=== PATIENT | female | born 1970 | race Asian ===

== ENCOUNTER 2016-09-20 01:16 | Inpatient (IN) | payer BC ==
[~2016-09-20] VITALS: Ht 152.4 cm; Wt 53.0 kg
[2016-09-20 01:20] VITALS: Ht 152.4 cm; Wt 53.0 kg
[2016-09-20] MEDS ORDERED: morphine 4 MG/ML VIAL IV STA (02:52)
[2016-09-20] MEDS ORDERED: ONDANSETRON 4 MG INJ IV STA (02:52)
[2016-09-20] MEDS ORDERED: SOD CHLORIDE 0.9% 1,000 ML IV STA (02:52)
[2016-09-20 03:46] LABS: ADD SCAN DIFF NO
[2016-09-20 03:56] LABS: BASOPHILS % 0.3 % (0.0-2.0); EOSINOPHILS % 0.4 % (0.0-7.0); HEMATOCRIT 38.7 % (37.0-47.0); HEMOGLOBIN 12.5 g/dl (12.0-16.0); LYMPHOCYTES # 1.2 10^3/ul (0.8-2.9); LYMPHOCYTES % 13.6 % (15.0-51.0); MEAN CORPUSCULAR HEMOGLOBIN 27.5 pg (29.0-33.0); MEAN CORPUSCULAR HGB CONC 32.3 g/dl (32.0-37.0); MEAN CORPUSCULAR VOLUME 85.2 fl (82.0-101.0); MEAN PLATELET VOLUME 10.3 fl (7.4-10.4); MONOCYTE # 0.4 10^3/ul (0.3-0.9); MONOCYTES % 4.2 % (0.0-11.0); NEUTROPHIL # 7.4 10^3/ul (1.6-7.5); NEUTROPHILS % 81.2 % (39.0-77.0); PLATELET COUNT 328 10^3/UL (140-415); RED BLOOD COUNT 4.54 10^6/ul (4.20-5.40); RED CELL DISTRIBUTION WIDTH 12.9 % (11.5-14.5); WHITE BLOOD COUNT 9.1 10^3/ul (4.8-10.8)
[2016-09-20 03:59] LABS: ALBUMIN 4.7 g/dl (3.3-4.9)
[2016-09-20 04:00] LABS: POTASSIUM 4.2 mmol/L (3.5-5.1)
[2016-09-20 04:02] LABS: ALBUMIN/GLOBULIN RATIO 1.09; BILIRUBIN,INDIRECT 1.5 mg/dl (0-1.1); BILIRUBIN,TOTAL 1.5 mg/dl (0.2-1.3); CREATININE 0.75 mg/dl (0.44-1.00)
[2016-09-20 04:03] LABS: CALCIUM 11.3 mg/dl (8.4-10.2)
[2016-09-20 04:15] LABS: ADD UMIC NO; URINE BILIRUBIN (Dip) NEGATIVE (NEGATIVE); URINE BLOOD (Dip) NEGATIVE (NEGATIVE); URINE COLOR LT. YELLOW (YELLOW); URINE GLUCOSE (Dip) NEGATIVE (NEGATIVE); URINE KETONES (Dip) NEGATIVE (NEGATIVE); URINE LEUKOCYTE ESTERASE (Dip) NEGATIVE (NEGATIVE); URINE NITRITE (Dip) NEGATIVE (NEGATIVE); URINE TOTAL PROTEIN (Dip) NEGATIVE (NEGATIVE); URINE UROBILINOGEN (Dip) 0.2 E.U./dL (0.1-1.0)
--- NOTE | 2016-09-20 05:31 | ERA ---
ER Documentation Chief Complaint Date/Time DATE: 09/20/16 TIME: 05:29 Chief Complaint upper abd pain since yesterday. hx of gallstone/pancreatitits HPI This a 45-year-old upper abdominal pain since yesterday. Patient has history gallstone pancreatitis. Pain is mild to moderate in intensity. No fevers no chills. No other current complaints. Mild nausea 3-4 episodes of vomiting. ROS All systems reviewed and are negative except as per history of present illness. Allergies Allergies: Coded Allergies: No Known Drug Allergies (Verified Allergy, Unknown, 09/20/16) PMhx/Soc Hx Miscellaneous Medical Probl: Yes (gallstones and pancreatitis ) Hx Alcohol Use: No Hx Substance Use: No Hx Tobacco Use: No Smoking Status: Never smoker Physical Exam Vitals Vital Signs Date Time Temp Pulse Resp B/P Pulse Ox O2 Delivery O2 Flow Rate FiO2 09/20/16 03:55 68 13 122/87 98 09/20/16 01:20 97.6 85 20 122/71 100 Physical Exam Const: [] Head: Atraumatic Eyes: Normal Conjunctiva ENT: Normal External Ears, Nose and Mouth. Neck: Full range of motion..~ No meningismus. Resp: Clear to auscultation bilaterally Cardio: Regular rate and rhythm, no murmurs Abd: Soft, non tender, non distended. Normal bowel sounds Skin: No petechiae or rashes Back: No midline or flank tenderness Ext: No cyanosis, or edema Neur: Awake and alert Psych: Normal Mood and Affect Result Diagram: 09/20/16 0325 09/20/16 0325 Results 24 hrs Laboratory Tests Test 09/20/16 03:25 09/20/16 03:40 Alanine Aminotransferase (ALT/SGPT) 241IU/L Albumin 4.7g/dl Albumin/Globulin Ratio 1.09 Alkaline Phosphatase 140IU/L Anion Gap 23 Aspartate Amino Transf (AST/SGOT) 405IU/L Basophils # 0.010^3/ul Basophils % 0.3% Blood Urea Nitrogen 21mg/dl Calcium Level 11.3mg/dl Carbon Dioxide Level 29mmol/L Chloride Level 99mmol/L Creatinine 0.75mg/dl Direct Bilirubin 0.00mg/dl Eosinophils # 0.010^3/ul Eosinophils % 0.4% Globulin 4.30g/dl Glucose Level 121mg/dl Hematocrit 38.7% Hemoglobin 12.5g/dl Indirect Bilirubin 1.5mg/dl Lipase 6384U/L Lymphocytes # 1.210^3/ul Lymphocytes % 13.6% Mean Corpuscular Hemoglobin 27.5pg Mean Corpuscular Hemoglobin Concent 32.3g/dl Mean Corpuscular Volume 85.2fl Mean Platelet Volume 10.3fl Monocytes # 0.410^3/ul Monocytes % 4.2% Neutrophils # 7.410^3/ul Neutrophils % 81.2% Nucleated Red Blood Cells # 0.010^3/ul Nucleated Red Blood Cells % 0.0/100WBC Platelet Count 62997^3/UL Potassium Level 4.2mmol/L Red Blood Count 4.5410^6/ul Red Cell Distribution Width 12.9% Sodium Level 147mmol/L Total Bilirubin 1.5mg/dl Total Protein 9.0g/dl White Blood Count 9.110^3/ul Urine Bilirubin NEGATIVE Urine Clarity SLIGHTLY CLOUDY Urine Color LT. YELLOW Urine Glucose NEGATIVE% Urine Hemoglobin NEGATIVE Urine Ketones NEGATIVE Urine Leukocyte Esterase NEGATIVE Urine Nitrite NEGATIVE Urine Specific Drury 1.015 Urine Total Protein NEGATIVE Urine Urobilinogen 0.2 E.U./dL Urine pH 7.5 Current Medications Medications (Trade) Dose Ordered Sig/Alexander Route PRN Reason Start Time Stop Time Status Last Admin Dose Admin Sodium Chloride (NS) 1,000 ml @ 1,000 mls/hr Q1H STAT IV 09/20/16 02:52 09/20/16 03:51 DC 09/20/16 03:20 Morphine Sulfate (morphine) 4 mg ONCE STAT IV 09/20/16 02:52 09/20/16 02:53 DC 09/20/16 03:21 Ondansetron HCl (Zofran Inj) 4 mg ONCE STAT IV 09/20/16 02:52 09/20/16 02:53 DC 09/20/16 03:20 Procedures/MDM Medical decision-making: This patient has no evidence of gallstone pancreatitis. Patient will be admitted. Dr. Eden from surgery will consult. Departure Diagnosis: Primary Impression: Acute gallstone pancreatitis Additional Impression: Abdominal pain Qualified Code: R10.13 - Epigastric pain Condition: Serious LETY TORO Sep 20, 2016 05:30
--- NOTE | 2016-09-20 05:36 | RADRPT ---
PROCEDURE: Abdominal ultrasound, limited. CLINICAL INDICATION: Abdominal pain. TECHNIQUE: Multiple real-time images were acquired of the patient's right upper abdomen utilizing a high resolution transducer. COMPARISON: None FINDINGS: The liver demonstrates normal echogenicity and size measuring 16.3 cm. There is no focal mass or in trahepatic biliary ductal dilatation. The portal vein is patent. The gallbladder is not distended. Multiple echogenic gallstones are identified. There is no pericholecystic fluid or gallbladder wa ll thickening. The common bile duct measures 3.2 mm in maximal dimension. The visualized portions of the pancreas are unremarkable. No free fluid is identified. The right kidney is normal size and echogenicity measuring 10.2 cm. There is no focal renal mass or echogenic calculus identified. There is no obstructive uropathy. IMPRESSION: Cholelithiasis without ultrasound evidence of cholecystitis. .Braxton Hall MD, MD Date Time Electronically viewed and signed by .Braxton Hall MD, MD on 09/20/2016 05:36 .T/
[2016-09-20 07:20] VITALS: TEMP 98.4
[2016-09-20 07:50] VITALS: BP 130/81; RESP 20
[2016-09-20] MEDS ORDERED: BISACODYL 10 MG SUPP PR PRN (08:30)
[2016-09-20] MEDS ORDERED: NA PHOSPHATE/BIPHOS 133 ML ENEMA PR PRN (08:30)
[2016-09-20] MEDS ORDERED: HYDROmorphONE 1 MG/ML SYG IV PRN ×2 (08:30)
--- NOTE | 2016-09-20 08:55 | CONS ---
[facility] INITIAL INPATIENT CONSULTATION PLACE OF SERVICE: [facility], 4th floor. DATE OF CONSULTATION: 09/20/2016 IMPRESSION AND PLAN: A very pleasant 45-year-old lady with rather significant history of grade B uterine malignancy, status post total abdominal hysterectomy in 2014 and initially diagnosed in 2006, who had one episode of gallstone pancreatitis a few weeks ago and now representing with similar issue. I do not believe that her pancreatitis and gallstones are related to her uterine malignancy, but it would be important to obtain previous records to get a better picture of the full clinical treatments that the patient has had. The patient appears to be relatively stable and my suspicion is that with a few days of medical support and fluids that the patient will resolve her pancreatitis, at which point I would recommend a laparoscopic, possible open cholecystectomy. I reviewed all of this in detail with the patient and answered all her questions and her mother's questions to the best of my ability. The patient and her family appeared to understand and agree with the following plans. With the above assessment, I have recommended the followin. Keep in house. 2. Intravenous fluids. 3. No need for intravenous antimicrobials at this time. 4. Treat pain. 5. Treat nausea and symptoms. 6. Obtain records from [facility] for previous hysterectomy and treatment for her uterine malignancy as well as the pathology report. 7. Laparoscopic cholecystectomy towards the end of this admission. Thank you again for allowing us to participate in the care of this very pleasant lady and her wonderful family. If there are any questions, please call me at [phone]. TOTAL VISIT TIME: 45 minutes, of which more than half was spent in face-to- face discussion with the patient, discussions with her mother, as well as coordination of care between multiple physicians and providers. UPDATED CLINICAL SUMMARY: A very pleasant 45-year-old lady with significant past history of uterine malignancy diagnosed in 2006, treated with hormonal therapy, and recurrence in 2014 that led to a total abdominal hysterectomy at [facility]. One episode of pancreatitis in August [address] [facility] while on vacation, and represented 09/20/2016 through the emergency department at [facility] with gallstone pancreatitis associated with elevated lipase of 6384, normal white blood cell count, and right upper quadrant ultrasound that demonstrated cholelithiasis without ultrasound evidence of cholecystitis. COMORBIDITIES: 1. History of uterine cancer, first diagnosed in 2006, treated with hormonal therapy, and then underwent uterine resection at [facility] in 2014 with what the patient remembers as a grade B tumor. Details of perioperative management unclear as of now. 2. One episode of pancreatitis 08/2016, treated in the [facility] without surgery. 3. Gallstone pancreatitis 09/20/2016. DATE OF ADMISSION: 09/20/2016 HISTORY OF PRESENT ILLNESS: The patient is a very pleasant 45-year-old young lady whom I had the pleasure of consulting with regarding management of gallstone pancreatitis. The patient reported having similar symptoms a few weeks ago in the [facility], and she has had on and off abdominal pain associated with eating in the past. Some nausea and some mild vomiting, but no blood in the stool or urine, changes in appetite, changes in weight, or other major findings. Abdominal pain currently is under control with medications. ALLERGIES: NO KNOWN DRUG ALLERGIES. MEDICATIONS: No outpatient medications recorded. In the hospital she has received morphine and ondansetron. SOCIAL HISTORY: The patient lives with her family and does not report any smoking, drinking, or intravenous drug use. FAMILY HISTORY: No major medical, surgical or malignancy reported in the family. REVIEW OF SYSTEMS: Other than the above-mentioned, there are no other pertinent positives or pertinent negatives in a complete 14-point review of systems. PHYSICAL EXAMINATION: GENERAL: The patient appears to be a very pleasant [place] lady of non- descent, appearing stated age, lying in bed comfortably, and in no acute distress. BMI is 22.8. VITAL SIGNS: Temperature 97.9, blood pressure 130/81, pulse 63, respiratory rate 20, pulse oximetry 100% on room air. HEENT: Normocephalic and atraumatic. Extraocular muscles and hearing are grossly intact bilaterally and symmetrically. Sclerae are nonicteric. Oral cavity is clear; oral mucosa appeared to be pink and moist. Dentition: fair. NECK: Supple. There is no lymphadenopathy or JVD. There is no submental, submandibular or supraclavicular lymphadenopathy. CHEST: Rises symmetrically with each breath; patient is breathing comfortably. There are no audible wheezes, rales or rhonchi on the gross exam. HEART: Pulse is regular and palpable on the left wrist. Capillary refill was normal. Carotid pulses are palpable bilaterally and symmetrically in the neck. EXTREMITIES: Lower extremities contain no pitting edema around the ankles bilaterally and symmetrically. ABDOMEN: Soft, nondistended, and mildly tender to palpation in the mid upper epigastrium without any evidence of organomegaly, caput medusae, engorged subcutaneous veins, or ascites. There are no peritoneal signs or guarding. SKIN: Appears to be pink and feels warm to touch. NEUROLOGIC: Awake, alert, and follows commands appropriately. LABORATORY DATA: White blood cell count 9.1, hemoglobin 12.5, platelets 328, 000. Electrolytes show sodium 147, CO2 29, creatinine 0.75, total bilirubin 1.5 , AST 405, ALT 241, alkaline phosphatase 140, albumin 4.7, lipase 6384. Urinalysis was negative. IMAGING: Ultrasound findings as above. Dictated By: TERESA HERMOSILLO/SREE Conf#: [id number] DID#: [id number] SIMONA
[2016-09-20] MEDS ORDERED: CEFTRIAXONE 1 GM/50 ML (PMX) 50 ML IVPB SCH (09:00)
[2016-09-20] MEDS: FAMOTIDINE 20 MG INJ IV SCH (09:53)
[2016-09-20] MEDS: D5W-0.45 NACL + KCL 20 MEQ 1,000 ML IV SCH ×3 (09:53→20:27)
[2016-09-20] MEDS ORDERED: CLON-379 PO (11:05)
[2016-09-20 12:00] VITALS: BP 129/66; PULSE 75; RESP 18
[2016-09-20] MEDS ORDERED: LOSA100T7 PO (12:47)
--- NOTE | 2016-09-20 18:53 | RADRPT ---
PROCEDURE: MRCP. CLINICAL INDICATION: Gallstone pancreatitis. TECHNIQUE: MRCP was performed on a high field MRI scanner. Patient was examined without contrast. 3-D coronal rotating MIP images of the biliary tree are available for review. COMPARISON: Gallbladder ultrasound 09/20/2016. FINDINGS: Breath motion artifact limits evaluation of fine detail. The gallbladder is not distended. Numerou s tiny stones layer dependently within the gallbladder lumen. Mild concentric gallbladder wall thic kening / edema is present. There is no pericholecystic fluid. There is no intrahepatic biliary duct dilatation. The common bile duct measures approximately 6 mm in greatest diameter which is at the upper range of normal. There is no discrete signal void within the common bile duct to suggest the presence of choledocholithiasis. The pancreatic duct is normal in caliber. The liver and spleen are homogeneous in signal intensity. The pancreas is homogeneous in signal int ensity. Mild diffuse peripancreatic edema is observed and compatible with acute appendicitis. Ther e is no evidence of peripancreatic fluid collection. The adrenal glands and kidneys are unremarkable. The abdominal aorta is normal in caliber. There is no periaortic / retroperitoneal lymphadenopathy. The stomach is collapsed. The visualized portions of the small and large intestines are unremarkabl e. There is no ascites. IMPRESSION: Cholelithiasis with mild concentric wall thickening / edema. Gallbladder inflammation may be present . No evidence of choledocholithiasis. Mild diffuse peripancreatic edema compatible with acute pancreatitis. No evidence of peripancreatic fluid collection. RPTAT: HLST .Felisha Garcia MD, Date Time Electronically viewed and signed by .Felisha Garcia MD, MD on 09/20/2016 18:53 .T/
[2016-09-20 20:25] VITALS: BP 107/63; RESP 18
--- NOTE | 2016-09-20 20:40 | QN ---
Documentation Comment [id number] KARLENE GOLD MD Sep 20, 2016 20:40
--- NOTE | 2016-09-20 22:09 | HP ---
DATE OF ADMISSION: 09/20/2016 HISTORY OF PRESENT ILLNESS: The patient is a young female with no significant past medical history, presented with abdominal pain except has history of hypertension, noted to have abnormal LFT and ri ght upper quadrant and epigastric pain. Denies any fevers, chills, rigors. The patient's blood pre ssure 130/81. PAST MEDICAL HISTORY: Hypertension. ALLERGY HISTORY: NEGATIVE. FAMILY HISTORY: Noncontributory. SOCIAL HISTORY: Negative. MEDICATIONS AT HOME: The patient is on: 1. Clonidine. 2. Losartan. REVIEW OF SYSTEMS: HEENT: Unremarkable. RESPIRATORY: Unremarkable. CARDIOVASCULAR: Unremarkable. ABDOMEN: As mentioned above. EXTREMITIES: Unremarkable. GENITOURINARY: Unremarkable. MUSCULOSKELETAL: Unremarkable. PHYSICAL EXAMINATION: GENERAL: The patient is awake, alert, not in any acute respiratory distress. VITAL SIGNS: Pulse 63, blood pressure 130/81. HEENT: Head is atraumatic, normocephalic. Pupils equal, reactive to light. NECK: Supple. No JVD. LUNGS: Clear. CARDIOVASCULAR: S1, S2 are normal. ABDOMEN: Soft. Tenderness in the right upper quadrant, epigastric area noted. EXTREMITIES: There is no cyanosis, clubbing or edema. CENTRAL NERVOUS SYSTEM: The patient is awake and alert with no focal deficit. LABORATORY DATA: As mentioned above. Hematocrit 38.7. Sodium 147, potassium of 4.2, calcium 11.3. AST 405, ALT 241, alkaline phosphatase 140, lipase 384. IMPRESSION: 1. Acute pancreatitis. 2. Gallstone pancreatitis. 3. Abnormal LFT. 4. Hypercalcemia. 5. Hypernatremia. 6. History of hypertension. PLAN: Keep her n.p.o., IV fluid, pain medication. The patient is currently on D5 half normal salin e at 100 mL an hour, Pepcid. The patient's home medications will be reviewed and continued once the patient is able to eat. Dictated By: KARLENE BATISTA/SREE Conf#: [id number] DID#: [id number]
[2016-09-21 04:52] LABS: ADD SCAN DIFF NO
[2016-09-21 05:25] LABS: ALBUMIN 3.8 g/dl (3.3-4.9); POTASSIUM 4.3 mmol/L (3.5-5.1)
[2016-09-21 05:27] LABS: CREATININE 0.79 mg/dl (0.44-1.00)
[2016-09-21 05:28] LABS: ALBUMIN/GLOBULIN RATIO 1.08; BILIRUBIN,INDIRECT 1.4 mg/dl (0-1.1); BILIRUBIN,TOTAL 1.4 mg/dl (0.2-1.3); CALCIUM 9.7 mg/dl (8.4-10.2); TOTAL PROTEIN 7.3 g/dl (6.1-8.1)
[2016-09-21 06:30] LABS: BASOPHILS % 0.3 % (0.0-2.0); EOSINOPHILS # 0.2 10^3/ul (0.0-0.5); EOSINOPHILS % 2.6 % (0.0-7.0); HEMATOCRIT 34.9 % (37.0-47.0); HEMOGLOBIN 11.4 g/dl (12.0-16.0); LYMPHOCYTES # 1.5 10^3/ul (0.8-2.9); LYMPHOCYTES % 23.8 % (15.0-51.0); MEAN CORPUSCULAR HEMOGLOBIN 27.7 pg (29.0-33.0); MEAN CORPUSCULAR HGB CONC 32.7 g/dl (32.0-37.0); MEAN CORPUSCULAR VOLUME 84.9 fl (82.0-101.0); MEAN PLATELET VOLUME 11.1 fl (7.4-10.4); MONOCYTE # 0.4 10^3/ul (0.3-0.9); MONOCYTES % 6.3 % (0.0-11.0); NEUTROPHIL # 4.2 10^3/ul (1.6-7.5); NEUTROPHILS % 66.5 % (39.0-77.0); PLATELET COUNT 271 10^3/UL (140-415); RED BLOOD COUNT 4.11 10^6/ul (4.20-5.40); RED CELL DISTRIBUTION WIDTH 13.1 % (11.5-14.5); WHITE BLOOD COUNT 6.2 10^3/ul (4.8-10.8)
[2016-09-21] MEDS: D5W-0.45 NACL + KCL 20 MEQ 1,000 ML IV SCH ×3 (06:34→17:18)
[2016-09-21 07:00] VITALS: BP 134/84; RESP 20
[2016-09-21] MEDS: FAMOTIDINE 20 MG INJ IV SCH (09:19)
[2016-09-21 11:00] VITALS: BP 124/87; RESP 20
[2016-09-21 16:00] VITALS: BP 158/91; RESP 20
[2016-09-21 17:00] VITALS: BP 136/85; RESP 20
--- NOTE | 2016-09-21 17:10 | PN ---
Date/Time of Note Date/Time of Note DATE: 09/21/16 TIME: 17:07 Assessment/Plan Lines/Catheters IV Catheter Type (from Nrs): Peripheral IV White in Place (from Nrs): No Assessment/Plan Assessment/Plan [facility] Progress Note Date of Service: 09/21/16 Today's Impression & Plan: Overall stable with improving pancreatitis. Obtained consent for lap derick tomorrow. With above assessment, I've recommended the following for today: 1. Liquid diet 2. NPO after midnight 3. Lap derick with plans to d/c home tomorrow afternoon Thank you again for your great care of this very pleasant patient and wonderful family. If there are any questions, please feel free to call me at [phone]. TOTAL VISIT TIME: 20 minutes of which more than half was spent in [id number] discussion with the patient, possibly including family, as well as coordination of care between multiple physicians and providers. Disclaimer: Inadvertent spelling or grammatical errors are likely due to EHR/ dictation software use and do not reflect on the overall quality of patient care. Updated Clinical Summary: A very pleasant 45-year-old lady with significant past history of uterine malignancy diagnosed in 2006, treated with hormonal therapy, and recurrence in 2014 that led to a total abdominal hysterectomy at [facility]. One episode of pancreatitis in August [address] [facility] while on vacation, and represented 09/20/2016 through the emergency department at [facility] with gallstone pancreatitis associated with elevated lipase of 6384, normal white blood cell count, and right upper quadrant ultrasound that demonstrated cholelithiasis without ultrasound evidence of cholecystitis. COMORBIDITIES: 1. History of uterine cancer, first diagnosed in 2006, treated with hormonal therapy, and then underwent uterine resection at [facility] in 2014 with what the patient remembers as a grade B tumor. Details of perioperative management unclear as of now. 2. One episode of pancreatitis 08/2016, treated in the [facility] without surgery. 3. Gallstone pancreatitis 09/20/2016. Subjective: No major events or complaints; no abd pain and under control with medications; no n/v/d; no sob or cp; + flatus; + BM and normal; + activity Objective: Vitals: See below Exam: GENERAL: On exam, the patient was standing up in her room and appeared to be comfortable and in no acute distress. ABDOMEN: Soft, nontender and nondistended. There are no peritoneal signs or guarding. SKIN: Skin appears to be pink and feels warm to touch. NEUROLOGIC: Patient is awake, alert, and follows commands appropriately. Exam/Review of Systems Vital Signs Vitals Vital Signs Date Time Temp Pulse Resp B/P Pulse Ox O2 Delivery O2 Flow Rate FiO2 09/21/16 16:00 98.1 72 20 158/91 98 09/20/16 12:00 Room Air Intake and Output 09/20/16 09/20/16 09/21/16 15:00 23:00 07:00 Intake Total 50 ml 900 ml 1000 ml Output Total 600 ml 700 ml Balance 50 ml 300 ml 300 ml Results Result Diagram: 09/21/16 0421 09/21/16 0421 TERESA YARBROUGH M.D. Sep 21, 2016 17:10
[2016-09-21] MEDS: LOSARTAN 50 MG TAB PO SCH (17:20)
--- NOTE | 2016-09-21 19:51 | PN ---
Date/Time of Note Date/Time of Note DATE: 09/21/16 TIME: 19:50 Assessment/Plan VTE Prophylaxis VTE Prophylaxis Intervention: other Lines/Catheters IV Catheter Type (from [facility]): Peripheral IV Urinary Cath still in place: No Assessment/Plan Chief Complaint/Hosp Course IMPRESSION: 1. Acute pancreatitis. 2. Gallstone pancreatitis. 3. Abnormal LFT. 4. Hypercalcemia. 5. Hypernatremia. 6. History of hypertension. plan per dr joyner Problems: Subjective 24 Hr Interval Summary Cardiovascular: no complaints Gastrointestinal: no complaints Genitourinary: no complaints Exam/Review of Systems Vital Signs Vitals Vital Signs Date Time Temp Pulse Resp B/P Pulse Ox O2 Delivery O2 Flow Rate FiO2 09/21/16 17:00 97.7 81 20 136/85 99 09/20/16 12:00 Room Air Intake and Output 09/20/16 09/20/16 09/21/16 15:00 23:00 07:00 Intake Total 50 ml 900 ml 1000 ml Output Total 600 ml 700 ml Balance 50 ml 300 ml 300 ml Exam Respiratory: clear to auscultation Cardiovascular: regular rate and rhythm Gastrointestinal: soft Musculoskeletal: nl extremities to inspection Extremities: normal pulses Results Result Diagram: 09/21/16 0421 09/21/16 0421 Results 24 hrs Laboratory Tests Test 09/21/16 04:21 Alanine Aminotransferase (ALT/SGPT) 250 H Albumin 3.8 Albumin/Globulin Ratio 1.08 Alkaline Phosphatase 121 Anion Gap 15 # Aspartate Amino Transf (AST/SGOT) 164 H Basophils # 0.0 Basophils % 0.3 Blood Urea Nitrogen 13 Calcium Level 9.7 Carbon Dioxide Level 25 Chloride Level 106 Creatinine 0.79 Direct Bilirubin 0.00 Eosinophils # 0.2 Eosinophils % 2.6 Globulin 3.50 H Glucose Level 110 Hematocrit 34.9 L Hemoglobin 11.4 L Indirect Bilirubin 1.4 H Lipase 529 H Lymphocytes # 1.5 Lymphocytes % 23.8 Mean Corpuscular Hemoglobin 27.7 L Mean Corpuscular Hemoglobin Concent 32.7 Mean Corpuscular Volume 84.9 Mean Platelet Volume 11.1 H Monocytes # 0.4 Monocytes % 6.3 Neutrophils # 4.2 Neutrophils % 66.5 Nucleated Red Blood Cells # 0.0 Nucleated Red Blood Cells % 0.0 Platelet Count 271 Potassium Level 4.3 Red Blood Count 4.11 L Red Cell Distribution Width 13.1 Sodium Level 142 Total Bilirubin 1.4 H Total Protein 7.3 # White Blood Count 6.2 # Medications Medications Current Medications Potassium Chloride/Dextrose/ Sod Cl (D5-1/2ns + KCl 20 Meq) 1,000 ml @ 100 mls/ hr Q10H IV Last administered on 09/21/16 17:18; Admin Dose 100 MLS/HR; Start at 08:30 Hydromorphone HCl (Dilaudid) 0.5 mg Q2 PRN IV PAIN; Start 09/20/16 at 08:30 Hydromorphone HCl (Dilaudid) 1 mg Q2 PRN IV PAIN; Start 09/20/16 at 08:30 Bisacodyl (Dulcolax Supp) 10 mg BID PRN [place]; Start 09/20/16 at 08:30 Sodium Biphosphate/ Sodium Phosphate (Fleet Enema) 133 ml BID PRN [place]; Start 09/20/16 at 08:30 Famotidine (Pepcid Iv) 20 mg DAILY IV Last administered on 09/21/16 09:19; Admin Dose 20 MG; Start 09/20/16 at 09:00 Ondansetron HCl (Zofran Inj) 4 mg Q4H PRN IV NAUSEA AND/OR VOMITING; Start 09/20 at 09:00 Clonidine (Catapres) 0.1 mg BID PO ; Start 09/21/16 at 21:00 Losartan Potassium (Cozaar) 100 mg DAILY PO Last administered on 09/21/16 17:20 ; Admin Dose 100 MG; Start 09/21/16 at 17:00 KARLENE GOLD MD Sep 21, 2016 19:51
[2016-09-21 20:07] VITALS: BP 120/75; RESP 18
[2016-09-22] VITALS (28 sets, daily range): BP systolic 128–176; BP diastolic 69–98; PULSE 62–74; RESP 8–22
[2016-09-22] MEDS: D5W-0.45 NACL + KCL 20 MEQ 1,000 ML IV SCH ×3 (00:30→20:05)
[2016-09-22 05:42] LABS: ALBUMIN 4.3 g/dl (3.3-4.9)
[2016-09-22 05:43] LABS: POTASSIUM 4.4 mmol/L (3.5-5.1)
[2016-09-22 05:45] LABS: ALBUMIN/GLOBULIN RATIO 1.26; CREATININE 0.72 mg/dl (0.44-1.00); TOTAL PROTEIN 7.7 g/dl (6.1-8.1)
[2016-09-22 05:46] LABS: CALCIUM 10.2 mg/dl (8.4-10.2)
[2016-09-22] MEDS ORDERED: CEFAZOLIN 1 GM INJ ONE (07:00)
--- NOTE | 2016-09-22 08:32 | HPN ---
Date/Time of Note Date/Time of Note DATE: 09/22/16 TIME: 08:32 Interval H&P Admission Note Pt. seen H&P reviewed: No system changes Pt. seen H&P reviewed. No system changes (I attest that I have seen and examined the patient and reviewed the operation in detail, as well as its risks , benefits and alternatives of the operation). I attest that I have seen and examined the patient and reviewed in detail the operation, and its associated risks, benefits and alternative. I have answered all the patient's questions to the best of my ability and the patient wishes to proceed. Please refer to rest of electronic medical record for additional updates. TERESA YARBROUGH M.D. Sep 22, 2016 08:32
[2016-09-22] MEDS: FAMOTIDINE 20 MG INJ IV SCH (09:00)
[2016-09-22] MEDS: LOSARTAN 50 MG TAB PO SCH (09:00)
[2016-09-22] MEDS ORDERED: BUPIVACAINE 0.25%/EPI (SDV) 30 ML INJ ONE (09:28)
[2016-09-22] MEDS ORDERED: MIDAZOLAM 1 MG/ML 2 ML INJ ONE (09:30)
[2016-09-22] MEDS ORDERED: morphine (1 MG/ML) 10ML SYRINGE IV PRN (10:30)
[2016-09-22] MEDS ORDERED: DIPHENHYDRAMINE 50 MG INJ IV PRN (10:30)
[2016-09-22] MEDS ORDERED: FENTAnyl 50 MCG/ML VIAL IV PRN (10:30)
[2016-09-22] MEDS ORDERED: ONDANSETRON 4 MG INJ IV PRN (10:30)
[2016-09-22] MEDS ORDERED: MEPERIDINE 25 MG INJ IV PRN (10:30)
[2016-09-22] MEDS ORDERED: LIDOCAINE 2% (SDV) 5 ML INJ ONE (10:40)
[2016-09-22] MEDS ORDERED: ONDANSETRON 4 MG INJ ONE (10:40)
[2016-09-22] MEDS ORDERED: PROPOFOL 20 ML ONE (10:40)
[2016-09-22] MEDS ORDERED: ROCURONIUM 50 MG INJ ONE (10:40)
[2016-09-22] MEDS ORDERED: NEOSTIGMINE 3 MG/3 ML SYRINGE ONE (10:40)
[2016-09-22] MEDS ORDERED: GLYCOPYRROLATE 0.4 MG INJ ONE (10:40)
--- NOTE | 2016-09-22 10:57 | OPPN ---
Date/Time of Note Date/Time of Note DATE: 09/22/16 TIME: 10:49 Operative/Procedure Note [facility] Immediate Post Operative Note: Pre-op Diagnosis: GS pancreatitis Post-Op Diagnosis: same Procedure: lap derick Surgeon: Lia Eden Commercial Fisher: Radha Anesthesia: DENITA Anesthesiologist: Dr. Emmanuel Fitch Findings: slight inflammation of GB EBL: 10 ml Blood Products: none Specimen: GB Complication: None Disposition: PACU Disclaimer: Inadvertent spelling and grammatical errors are likely due to EHR/ dictation use and do not reflect on the quality of the delivered patient care. TERESA EDEN M.D. Sep 22, 2016 10:57
[2016-09-22] MEDS ORDERED: BISACODYL 10 MG SUPP PR PRN (11:00)
[2016-09-22] MEDS ORDERED: NA PHOSPHATE/BIPHOS 133 ML ENEMA PR PRN (11:00)
[2016-09-22] MEDS ORDERED: DOCUSATE SODIUM 100 MG CAP PO PRN (11:00)
--- NOTE | 2016-09-22 11:11 | OPR ---
Date/Time of Note Date/Time of Note DATE: 09/22/16 TIME: 11:10 Operative Report Procedure Description [facility] INPATIENT OPERATIVE NOTE PLACE OF SERVICE: [facility] DATE OF SURGERY: 09/22/2016 PREOPERATIVE DIAGNOSIS: 1. Gallstone pancreatitis 09/20/2016 2. History of uterine cancer, first diagnosed in 2006, treated with hormonal therapy, and then underwent uterine resection at [facility] in 2014; [id number] 3. One episode of pancreatitis 08/2016, treated in the [facility] without surgery POSTOPERATIVE DIAGNOSIS: 1. Gallstone pancreatitis 09/20/2016 2. History of uterine cancer, first diagnosed in 2006, treated with hormonal therapy, and then underwent uterine resection at [facility] in 2014; [id number] 3. One episode of pancreatitis 08/2016, treated in the [facility] without surgery OPERATION: 1. Laparoscopic cholecystectomy SURGEON: Teresa Eden M.D. ELECTRONICS ENGINEERING PROFESSOR: None ANESTHESIA: General endotracheal tube anesthesia ANESTHESIOLOGIST: Emmanuel Fitch M.D. BRIEF SUMMARY: An otherwise uncomplicated laparoscopic cholecystectomy was performed with findings of possible early acute cholecystitis. BRIEF HISTORY: A very pleasant 45-year-old lady with significant past history of uterine malignancy diagnosed in 2006, treated with hormonal therapy, and recurrence in 2014 that led to a total abdominal hysterectomy at [facility]. One episode of pancreatitis in August 2016 in the [facility] while on vacation, and represented 09/20/2016 through the emergency department at [facility] with gallstone pancreatitis associated with elevated lipase of 6384, normal white blood cell count, and right upper quadrant ultrasound that demonstrated cholelithiasis without ultrasound evidence of cholecystitis. Patient's pancreatitis quickly resolved. I met with the patient and family and counseled them regarding the possible options of treatment, and I strongly suggested a laparoscopic, possible open cholecystectomy, mainly as a preventative measure to reduce incidence of recurrent gallstone pancreatitis. We reviewed the operation in detail as well as the risks, benefits, alternatives, and expected outcomes of this operation. After careful consideration of all the risks, benefits, and alternatives, the patient and family appeared to understand those risks and wished to proceed with surgery. For a detailed report of my consultation with patient and family, please refer to my separate consultation note. STATEMENT OF THE INFORMED CONSENT: The patient and family appeared to understand the risks of the operation to include, but not be limited to risk of postoperative pain and scar tissue, possible infection or bleeding requiring other interventions such as opening the wound, placement of drainage catheters, or other operative interventions; possible injury to surrounding to structures including bowel, bladder, bile duct, or blood vessels, or solid organs such as liver, kidney, or pancreas requiring other interventions or procedures; possible leakage of bile from surgical clip sites, suture lines, or worse, from common bile duct injury, causing significant increase in morbidity and mortality and requiring multiple interventions including but not limited to, placement of drainage catheters, imaging studies, as well as operative interventions; possible other source of sepsis such as urinary tract infections or pneumonias, or other sources of potentially life threatening problems such as deep venous thrombus formation causing pulmonary embolism, myocardial arrhythmias and infarctions, and even . After careful consideration of all their options, the patient and family appeared to understand and wished to proceed with surgery. DESCRIPTION OF PROCEDURE: After obtaining informed consent, the patient was brought into the operating room and was placed in a normal supine position, where successful general endotracheal tube anesthesia was performed. The patient 's abdominal skin was prepped and draped, from the nipple line down to the level of the groins, in the usual sterile fashion. Intravenous access was already in place, and appropriately chosen and dosed prophylactic intravenous antimicrobials were administered. We then called a surgical time-out where patient's identification, date of , nature of the operation, allergies, presence of intravenous antimicrobials, presence of needed equipment, and any other concerns were reviewed and agreed upon by all members of the operating room team. We then started the operation by placing a 5-mm skin incision in the right- upper quadrant, subcostal midclavicular line, and introduced a 5-mm [employer] trocar into the peritoneal space, visualizing all the layers of the abdominal wall as we entered. Note that there was no indication of any injury to underlying structures once we entered the peritoneum. We insufflated the abdominal cavity to a maximum pressure of 15 mmHg, again, confirmed lack of any injury to underlying structures prior to visualizing the rest of the abdominal cavity. We found the fundus of the gallbladder to be visible. There was no evidence of malignancy. No evidence of calcifications or significant issues with adhesions, or other abnormalities. The liver appeared to be healthy. With this information, we went a head and placed the other trocars under direct visualization, after injecting their sites with 0.25% Marcaine with epinephrine , placing a 5-mm trocar in the umbilical midline area, a 5-mm trocar in the right anterior axillary line, and a 12-mm trocar in the midline subxiphoid region. With our instruments in place, we had excellent visualization and access to the right-upper quadrant. We then we grasped the fundus of the gallbladder and pointed up towards the right-upper quadrant. We were then able to grasp the infundibulum and pull it out in order to expose the critical triangle of Calot. We then placed our usual serosal cuts along the long axis of the gallbladder 1 cm away from its attachment to the liver bed up towards the fundus, and then joined these 2 lines under the infundibulum, taking care not to deliver any energy to underlying structures. We then attempted to dissect in the triangle of Calot low , but because of amount of inflammation in the region, I decided to maximize a degree of safety of the operation by taking the gallbladder top-down which we did with cautery prior to being able to perform meticulous dissection to identify and circumferentially isolate both the cystic duct and 2 branches of the cystic artery, prior to transecting them between 2 surgical Endoclips, proximally and one distally on the cystic artery branches each, and 3 surgical endoclips proximally and one distally on the cystic duct, transecting both using cold scissors, and only after making sure that these were the only 2 structures going into the gallbladder. We then shaved the gallbladder off the gallbladder bed using cautery, and then delivered it out inside of an EndoCatch bag through the 12-mm trocar site without enlarging the fascia or contaminating the wound. The gallbladder was sent to Pathology for evaluation. Returning to the abdominal cavity, we ensured that there was adequate hemostasis and bile-stasis prior to removal of all of or equipment, including the pneumoperitoneum, and then reapproximating the 12-mm trocar site with one [id number] 0 Vicryl suture, followed by washing the wounds with copious amounts of normal saline, and then reapproximating the skin using interrupted 4- 0 Monocryl sutures. Light dressing was then applied. At the end of the operation, both the sponge count and needle count were reportedly correct x2. The patient tolerated the procedure without any reported complications. ESTIMATED BLOOD LOSS: Less than 10 mL. BLOOD OR BLOOD PRODUCT TRANSFUSIONS: None to my knowledge. SPECIMENS: 1. Gallbladder COMPLICATIONS: None. DISPOSITION: Recovery area. Disclaimer: Inadvertent spelling and grammatical errors are likely due to EHR/ dictation software use and do not reflect on the quality of delivered patient care. TERESA EDEN M.D. Sep 22, 2016 11:11
[2016-09-22] MEDS ORDERED: LABETALOL HCL 20MG INJ ONE (11:55)
[2016-09-22] MEDS ORDERED: HYDROCODONE/APAP (5/325) TAB PO PRN (12:27)
[2016-09-22] MEDS ORDERED: HYDROmorphONE 1 MG/ML SYG IV PRN (12:28)
[2016-09-22] MEDS: ONDANSETRON 4 MG INJ IV PRN ×2 (12:33→20:04)
[2016-09-22] MEDS: HYDROmorphONE 1 MG/ML SYG IV PRN ×2 (12:34→16:14)
[2016-09-22] MEDS: HYDROCODONE/APAP (5/325) TAB PO PRN (20:29)
--- NOTE | 2016-09-22 20:30 | PN ---
Date/Time of Note Date/Time of Note DATE: 09/22/16 TIME: 20:29 Assessment/Plan VTE Prophylaxis VTE Prophylaxis Intervention: other Lines/Catheters IV [facility] Type (from [facility] Peripheral IV Urinary Cath still in place: No Assessment/Plan Chief Complaint/Hosp Course IMPRESSION: 1. Acute pancreatitis. 2. Gallstone pancreatitis. 3. Abnormal LFT. 4. Hypercalcemia. 5. Hypernatremia. 6. History of hypertension. plan per dr joyner s/p lap derick Problems: Subjective 24 Hr Interval Summary Constitutional: improved Respiratory: no complaints Gastrointestinal: pain (+) Exam/Review of Systems Vital Signs Vitals Vital Signs Date Time Temp Pulse Resp B/P Pulse Ox O2 Delivery O2 Flow Rate FiO2 09/22/16 19:47 97.8 68 20 141/93 98 09/22/16 14:00 Room Air Intake and Output 09/21/16 09/21/16 09/22/16 15:00 23:00 07:00 Intake Total 1400 ml Output Total 1200 ml Balance 200 ml Exam Cardiovascular: regular rate and rhythm Gastrointestinal: soft Musculoskeletal: nl extremities to inspection Extremities: normal pulses Results Result Diagram: 09/21/16 0421 09/22/16 0425 Results 24 hrs Laboratory Tests Test 09/22/16 04:25 Alanine Aminotransferase (ALT/SGPT) 195 H Albumin 4.3 Albumin/Globulin Ratio 1.26 Alkaline Phosphatase 125 H Anion Gap 18 H Aspartate Amino Transf (AST/SGOT) 90 H Blood Urea Nitrogen 8 Calcium Level 10.2 Carbon Dioxide Level 24 Chloride Level 106 Creatinine 0.72 Direct Bilirubin 0.00 Globulin 3.40 H Glucose Level 109 Indirect Bilirubin 1.0 Potassium Level 4.4 Sodium Level 144 Total Bilirubin 1.0 Total Protein 7.7 Medications Medications Current Medications Potassium Chloride/Dextrose/ Sod Cl (D5-1/2ns + KCl 20 Meq) 1,000 ml @ 100 mls/ hr Q10H IV Last administered on 09/22/16t 20:05; Admin Dose 100 MLS/HR; Start at 08:30 Bisacodyl (Dulcolax Supp) 10 mg BID PRN [place] CONSTIPATION; Start 09/20/16 at 08:30 Sodium Biphosphate/ Sodium Phosphate (Fleet Enema) 133 ml BID PRN [place] CONSTIPATION; Start 09/20/16 at 08:30 Ondansetron HCl (Zofran Inj) 4 mg Q4H PRN IV NAUSEA AND/OR VOMITING Last administered on 09/22/16 20:04; Admin Dose 4 MG; Start 09/20/16 at 09:00 Clonidine (Catapres) 0.1 mg BID PO Last administered on 09/22/16 20:07; Admin Dose 0.1 MG; Start 09/21/16 at 21:00 Losartan Potassium (Cozaar) 100 mg DAILY PO Last administered on 09/21/16 17:20 ; Admin Dose 100 MG; Start 09/21/16 at 17:00 Acetaminophen/ Hydrocodone Bitart ([place] (5/325)) 1 tab Q4H PRN PO PAIN LEVEL 4 -7; Start 09/22/16 at 12:27 Acetaminophen/ Hydrocodone Bitart ([place] (5/325)) 2 tab Q4H PRN PO PAIN LEVEL 7 -10; Start 09/22/16 at 12:27 Hydromorphone HCl (Dilaudid) 0.5 mg Q2H PRN IV PAIN; Start 09/22/16 at 12:28 Hydromorphone HCl (Dilaudid) 1 mg Q2H PRN IV PAIN Last administered on 16:14; Admin Dose 1 MG; Start 09/22/16 at 12:28 Docusate Sodium (Colace) 100 mg BID PRN PO CONSTIPATION; Start 09/22/16 at 11:00 Bisacodyl (Dulcolax Supp) 10 mg BID PRN [place] CONSTIPATION; Start 09/22/16 at 11:00 Sodium Biphosphate/ Sodium Phosphate (Fleet Enema) 133 ml BID PRN [place] CONSTIPATION; Start 09/22/16 at 11:00 Enoxaparin Sodium (Lovenox) 40 mg DAILY SC ; Start 09/23/16 at 09:00 Famotidine (Pepcid) 40 mg HS PO ; Start 09/22/16 at 21:00 KARLENE GOLD MD Sep 22, 2016 20:30
[2016-09-22] MEDS ORDERED: FAMOTIDINE 20 MG TAB PO SCH (21:00)
[2016-09-23 04:30] VITALS: BP 116/80; PULSE 68; RESP 16
[2016-09-23] MEDS: HYDROCODONE/APAP (5/325) TAB PO PRN (05:23)
[2016-09-23 05:40] LABS: ADD SCAN DIFF NO
[2016-09-23 05:52] LABS: BASOPHILS % 0.3 % (0.0-2.0); EOSINOPHILS # 0.2 10^3/ul (0.0-0.5); EOSINOPHILS % 2.8 % (0.0-7.0); HEMATOCRIT 35.1 % (37.0-47.0); HEMOGLOBIN 11.2 g/dl (12.0-16.0); LYMPHOCYTES # 1.6 10^3/ul (0.8-2.9); MEAN CORPUSCULAR HEMOGLOBIN 27.5 pg (29.0-33.0); MEAN CORPUSCULAR HGB CONC 31.9 g/dl (32.0-37.0); MEAN PLATELET VOLUME 10.6 fl (7.4-10.4); MONOCYTE # 0.4 10^3/ul (0.3-0.9); MONOCYTES % 7.3 % (0.0-11.0); NEUTROPHIL # 3.8 10^3/ul (1.6-7.5); NEUTROPHILS % 63.4 % (39.0-77.0); PLATELET COUNT 244 10^3/UL (140-415); RED BLOOD COUNT 4.08 10^6/ul (4.20-5.40); RED CELL DISTRIBUTION WIDTH 13.2 % (11.5-14.5)
[2016-09-23 06:04] LABS: ALBUMIN/GLOBULIN RATIO 1.08; BILIRUBIN,INDIRECT 0.9 mg/dl (0-1.1); BILIRUBIN,TOTAL 0.9 mg/dl (0.2-1.3); CREATININE 0.75 mg/dl (0.44-1.00); TOTAL PROTEIN 7.7 g/dl (6.1-8.1)
[2016-09-23 06:05] LABS: CALCIUM 9.8 mg/dl (8.4-10.2); MAGNESIUM 1.8 mg/dl (1.7-2.5); PHOSPHORUS 3.9 mg/dl (2.5-4.9)
[2016-09-23] MEDS: D5W-0.45 NACL + KCL 20 MEQ 1,000 ML IV SCH (06:13)
[2016-09-23 07:45] VITALS: BP 126/83; RESP 16
[2016-09-23] MEDS: LOSARTAN 50 MG TAB PO SCH (08:38)
[2016-09-23] MEDS ORDERED: ENOXAPARIN 40 MG/0.4 ML SYG SC SCH (09:00)
--- NOTE | 2016-09-23 13:00 | PDOCDIS ---
Discharge Instructions CONDITION Patient Condition: Stable HOME CARE INSTRUCTIONS: Diet Instructions: Low Fat /Cholesterol ACTIVITY: Activity Restrictions: Slowly Increase Activity FOLLOW UP/APPOINTMENTS Appointments F/U OWN PCP [address] HALL 1 WK KARLENE GOLD MD Sep 23, 2016 13:00
[2016-09-23] MEDS ORDERED: FAMO20TA18 PO (13:02)
[2016-09-23] MEDS ORDERED: DULR PR (13:02)
[2016-09-23] MEDS ORDERED: TRAM50TA2 PO (13:02)
== END 2016-09-23 14:00 | disposition home or self-care (01) | DRG 418 ==
LOC: E/R 01:16 → MS1 05:54
PROVIDERS: ADMIT Internal Medicine Nephrology; ATTEND Internal Medicine Nephrology
PROC: 0FT44ZZ Resection of Gallbladder, Percutaneous Endoscopic Approach (ICD-10-PCS; principal; 2016-09-22 09:00)
DX: K85.10 Biliary acute pancreatitis without necrosis or infection (principal); E87.0 Hyperosmolality and hypernatremia; Z90.710 Acquired absence of both cervix and uterus; I10 Essential (primary) hypertension; E83.52 Hypercalcemia; Z85.42 Personal history of malignant neoplasm of other parts of uterus
CPT/HCPCS: 36415; 74181; 76705; 80053; 81003; 83690; 83735; 84100; 85025; 88304; 96374; 96375; J0690; J0696; J1170; J1650; J2250; J2270; J2405; J2710; J3010; J3480; J7030

== ENCOUNTER 2016-10-05 13:55 | Outpatient (CLI) | payer BC ==
[~2016-10-05] VITALS: Ht 152.4 cm; Wt 53.2 kg
[~2016-10-05 13:55] MED LIST: CLON-379 PO; DULR PR; FAMO20TA18 PO; LOSA100T7 PO; TRAM50TA2 PO
[2016-10-05 14:00] VITALS: BP 134/83; PULSE 78; RESP 18; Ht 152.4 cm; Wt 53.2 kg
--- NOTE | 2016-10-05 16:30 | PN ---
Date/Time of Note Date/Time of Note DATE: 10/05/16 TIME: 16:19 Assessment/Plan Assessment/Plan Assessment/Plan [facility] Progress Note Date of Service: 10/05/16 Today's Impression & Plan: Overall doing well post op without major issues. No major wound problems. With above assessment, I've recommended the following for today: 1. F/u with PCP 2. F/u with us prn Thank you again for your great care of this very pleasant patient and wonderful family. If there are any questions, please feel free to call me at [phone]. TOTAL VISIT TIME: 20 minutes of which more than half was spent in [id number] discussion with the patient, possibly including family, as well as coordination of care between multiple physicians and providers. Disclaimer: Inadvertent spelling or grammatical errors are likely due to EHR/ dictation software use and do not reflect on the overall quality of patient care. Updated Clinical Summary: A very pleasant 45-year-old lady with significant past history of uterine malignancy diagnosed in 2006, treated with hormonal therapy, and recurrence in 2014 that led to a total abdominal hysterectomy at [facility]. One episode of pancreatitis in August 2016 in the [facility] while on vacation, and represented 09/20/2016 through the emergency department at [facility] with gallstone pancreatitis associated with elevated lipase of 6384, normal white blood cell count, and right upper quadrant ultrasound that demonstrated cholelithiasis without ultrasound evidence of cholecystitis. Patient's pancreatitis quickly resolved. I met with the patient and family and counseled them regarding the possible options of treatment, and I strongly suggested a laparoscopic, possible open cholecystectomy, mainly as a preventative measure to reduce incidence of recurrent gallstone pancreatitis. She underwent laparoscopic cholecystectomy on 09/22/16 with findings of possible early acute cholecystitis, with final path showing chronic cholecystitis. Comorbidities: 1. Gallstone pancreatitis 09/20/2016 2. History of uterine cancer, first diagnosed in 2006, treated with hormonal therapy, and then underwent uterine resection at [facility] in 2014; [id number] 3. One episode of pancreatitis 08/2016, treated in the [facility] without surgery 4. S/p laparoscopic cholecystectomy on 09/22/16 with findings of possible early acute cholecystitis, with final path showing chronic cholecystitis Subjective: No major events or complaints; no abd pain and under control with medications; no n/v/d; no sob or cp; + flatus; + BM and normal; + activity Objective: Vitals: See below Exam: GENERAL: On exam, the patient was sitting in a chair and appeared to be comfortable and in no acute distress. ABDOMEN: Soft, nontender and nondistended. Incisions are clean, dry and intact without any evidence of erythema, edema, discharge, or hernia. There are no peritoneal signs or guarding. SKIN: Skin appears to be pink and feels warm to touch. NEUROLOGIC: Patient is awake, alert, and follows commands appropriately. Exam/Review of Systems Vital Signs Vitals Vital Signs Date Time Temp Pulse Resp B/P Pulse Ox O2 Delivery O2 Flow Rate FiO2 10/05/16 14:00 97.9 78 18 134/83 100 Room Air TERESA YARBROUGH M.D. Oct 05, 2016 16:30
== END 2016-10-05 17:00 | disposition home or self-care (01) ==
LOC: HPC 13:55
PROVIDERS: ATTEND Transplant Surgery
DX: K85.10 Biliary acute pancreatitis without necrosis or infection (principal); K81.1 Chronic cholecystitis; Z90.49 Acquired absence of other specified parts of digestive tract; Z85.42 Personal history of malignant neoplasm of other parts of uterus
CPT/HCPCS: G0463